=== PATIENT | female | born 1970 | race Caucasian/White ===

== ENCOUNTER 2024-09-17 22:04 | Emergency (ER) | payer SELFPAY ==
[2024-09-17 22:05] VITALS: BP 166/77; PULSE 104; RESP 16; TEMP 36.7; O2SAT 100; BMI 20.3
--- NOTE | 2024-09-17 23:07 | CT_ITS ---
PROCEDURE INFORMATION: Exam: CT Abdomen And Pelvis With Contrast Exam date and time: 09/18/2024 12:45 AM Age: 53 years old Clinical indication: Other: Dysuria; Additional info: Dysuria, tachy, and L CVA tenderness TECHNIQUE: Imaging protocol: Computed tomography of the abdomen and pelvis with contrast. Radiation optimization: All CT scans at this facility use at least one of these dose optimization techniques: automated exposure control; mA and/or kV adjustment per patient size (includes targeted exams where dose is matched to clinical indication); or iterative reconstruction. Contrast material: ISOVUE; Contrast volume: 75 ml; Contrast route: IV; COMPARISON: No relevant prior studies available. FINDINGS: Liver: There is fat deposition adjacent to the falciform ligament. Gallbladder and biliary ducts: No acute process. Pancreas: Normal. Spleen: Normal. Adrenal glands: The adrenal glands appear normal. Kidneys and ureters: Severe left hydroureteronephrosis extending to the urinary bladder where there is a 4 mm calculus at the UVJ (image 106 series 3). Significant left-sided obstructive uropathy. Large right parapelvic renal cyst. Stomach and bowel: The stomach, small bowel, and colon are well-distended and show no evidence of wall thickening, masses, or obstruction. Appendix: No evidence of appendicitis. Intraperitoneal space: Unremarkable. Vasculature: The abdominal aorta and its major branches appear normal without evidence of aneurysm or stenosis. There are pelvic phleboliths. Lymph nodes: There are enlarged upper abdominal mesenteric lymph nodes versus peritoneal nodules measuring up to 1.3 cm in short axis (image 53 series 3). Urinary bladder: There is mild bladder wall thickening, nonspecific. Reproductive: The patient has undergone prior hysterectomy. Bones/joints: The visualized osseous structures of the abdomen and pelvis appear normal for patient age. Soft tissues: There is a small fat containing umbilical hernia. IMPRESSION: 1. Severe left hydroureteronephrosis extending to the urinary bladder where there is a 4 mm calculus at the UVJ (image 106 series 3). 2. Upper abdominal mesenteric lymphadenopathy versus peritoneal nodularity of unclear etiology, correlate with any available prior imaging and consider PET-CT for further evaluation if warranted. COMMENTS: Consistent with the [employer]'s Incidental Findings Committee white paper (J Am Daniak Radiol 2018): Any incidental renal lesion less than 1 cm or classified as too small to characterize, or any incidental cystic renal lesion characterized as simple-appearing, is likely benign. No follow-up imaging is recommended for these lesions per consensus recommendations based on imaging criteria.
[2024-09-17 23:12] LABS: Microscopic, Urine URINE MICROSCOPIC (MICROSCOPIC)
[2024-09-17 23:30] VITALS: BP 136/82; PULSE 109; RESP 18; O2SAT 98
[2024-09-17] MEDS: LACTATED RINGERS 1000ML 1,000 ML 999 ML IV (23:31)
[2024-09-17] MEDS: KETOROLAC 30MG/ML VIAL 15 MG IV (23:31)
[2024-09-17] MEDS: ONDANSETRON 4MG/2ML VIAL 4 MG IV (23:31)
[2024-09-17 23:45] LABS: Basophils # 0.1 K/mm3 (0-0.2); Basophils % 0.5 % (0.1-2.0); Eosinophils # 0.1 K/mm3 (0.0-0.4); Eosinophils % 0.5 % (0.1-12.0); Hematocrit 34.1 % (37.0-47.0); Hemoglobin 11.1 g/dL (12.2-16.2); Lymphocytes # 1.5 K/mm3 (0.7-4.5); Lymphocytes % 11.7 % (10-50); Mean Corpuscular HGB Conc 32.6 g/dL (31.8-35.4); Mean Corpuscular Hemoglobin 29.4 pg (27.0-31.2); Mean Corpuscular Volume 90.5 fl (81-99); Mean Platelet Volume 11.3 fl (7.4-10.4); Monocytes # 0.1 K/mm3 (0.1-1.0); Monocytes % 0.4 % (1.7-9.3); Neutrophils # 11.2 K/mm3 (1.8-7.8); Neutrophils % 86.6 % (37.0-80.0); Platelet Count 459 K/mm3 (142-424); Red Blood Count 3.77 M/mm3 (4.20-5.40); Red Cell Distribution Width 14.3 % (11.5-17.5)
[2024-09-17 23:57] LABS: Albumin Level 4.3 g/dl (3.5-5.0); Chloride 106 mmol/L (98-107); Potassium 4.6 mmoL/L (3.5-5.1); Sodium 140 mmol/L (136-145)
[2024-09-18] VITALS (7 sets, daily range): BP systolic 108–146; BP diastolic 65–89; PULSE 98–113; RESP 18; TEMP 37.2; O2SAT 95–100
[2024-09-18] LABS: Alanine Aminotransferase 18 U/L (12-78); Albumin/Globulin Ratio 1.2 (1.1-1.8); Alkaline Phosphatase 116 U/L (38-126); Anion Gap 15.6 mEq/L (5-15); Aspartate Amino Transferase 38 U/L (14-36); Bilirubin,Total 0.7 mg/dl (0.2-1.3); Blood Urea Nitrogen 17 mg/dl (7-17); Calcium 9.1 mg/dl (8.4-10.2); Carbon Dioxide 23 mmol/L (22.0-30.0); Creatinine Clearance Estimated 67 mL/min (50-200); Estimated Glomerular Filt Rate 65 ml/min (>60); GFR (African American) 79 ML/MIN (>60); Globulin 3.6 g/dL (1.3-3.2); Glucose 92 mg/dl (74-100); Total Protein,Serum 7.9 g/dl (6.3-8.2)
[2024-09-18 00:13] LABS: Blood, Urine Negative (Negative); Glucose,Urine (UA) 1+ (Negative); Ketones,Urine Negative (Negative); Leukocyte Esterase,Urine TRACE (Negative); Nitrate,Urine POSITIVE (Negative); PH,Urine 6.5 (5.0-8.5); Protein,Urine 2+ (Negative); Urobilinogen,Urine >=8.0 EU/dl (0.2)
[2024-09-18 00:14] LABS: Appearance,Urine Cloudy (Clear); Bilirubin,Urine 2+ (Negative); Color,Urine Orange (Yellow)
[2024-09-18 00:16] LABS: Bacteria,Urine Trace /lpf; RBC,Urine Occasional #/hpf (0-3); Squamous Epithelial Cell,Urine Occasional #/hpf (0-5); WBC,Urine Occasional #/hpf (0-3)
[2024-09-18] MEDS: CEFTRIAXONE 1 GM 1 GM in 0.9 % SODIUM CHLORIDE 50 ML IV (00:22)
[2024-09-18] MEDS: SODIUM CHLORIDE 0.9% 10ML SYR (RAD ONLY) 10 ML IV (00:54)
[2024-09-18] MEDS: IOPAMIDOL-370 (76%);100ML BOTTLE 75 ML IV (00:54)
--- NOTE | 2024-09-18 01:33 | ED_ITS ---
Discharge Plan Disposition Patient Disposition: Xfer Short-Term Hosp Prescriptions Prescriptions: No Action phenazopyridine [AZO Standard] 95 mg Tablet 95 mg PO TID Referrals Follow up/Referrals: Guillaume Madrigal [Primary Care Provider] - See instructions Clinical Impressions Clinical Impression: Urinary tract infection, Hydronephrosis, Ureterolithiasis Instructions Patient Instructions: DI for Urinary Tract Infection (UTI), DI for Urinary Tract Infection in Children Print Language Print Language: [place] Discharge ED Provider: Alexis Suero General Adult HPI General Chief complaint: Urogenital-Female Stated complaint: groin area hurts Time Seen by Provider: 09/17/24 22:58 Mode of Arrival: Ambulatory Source of Information: Patient Limitations: No Limitations Description of Symptoms (Recalled from ER Triage Doc. by RN): States she feels like she has to void but can't. She was able to void a small amount in the lobby bathroom. She states she has been having pain in her left groin 9/10 since 1420. States she took AZO standard incase she has a UTI but otherwise does not take any medications. She reports having a fever of 101.9 on either Thursday or but none today. Reports vomiting recently today and body aches. Denies any diarrhea. History of Present Illness HPI narrative: 53-year-old female presents to the ER with complaints of urinary frequency, urgency, dysuria. She states she has been having pain in her left groin 9 out of 10 since this afternoon. She states she took Azo but does not take other medications. She reports having fever of 101.9 earlier this week but none today. Patient reports she had 1 episode of emesis today, nonbloody, nonbilious. She denies diarrhea. She reports history of prior UTI many years ago but not 1 recently. She states she has not been on any recent antibiotics. She denies chest pain or difficulty breathing, headache, dizziness, numbness, tingling, or weakness. Pain radiates to her back. History of complete hysterectomy. Related Data Home Medications ?Medication ?Instructions ?Recorded ?Confirmed phenazopyridine 95 mg tablet 95 mg PO TID 09/17/24 09/17/24 Allergies Allergy/AdvReac Type Severity Reaction Status Date / Time No Known Allergies Allergy Verified 09/17/24 22:47 [facility] Disclaimer: The information contained in this section may have been updated after the patient was seen, as this information can be updated by other users. Social History Smoking Status: Current every day smoker alcohol intake: never current occupational status: other Travel in the last 8 weeks: None ROS Obtained: Yes Systems reviewed as appropriate & no additional complaints except as documented Per HPI Physical Exam General General appearance: alert Comment: Obviously in pain Head Head exam: atraumatic and normocephalic Eye Eye exam: Present PERRL and EOMI ENT ENT exam: Present mucous membranes moist Neck Neck exam: Present normal inspection and full ROM Chest Chest inspection: Present symmetric chest wall rise Respiratory Respiratory exam: Present normal lung sounds bilaterally; Absent respiratory distress, wheezes or stridor Cardiovascular Cardiovascular exam: Present normal rhythm and tachycardia Abdominal Exam Abdominal exam: Present soft, tenderness (Suprapubic) and guarding (Voluntary); Absent distention, rebound or rigidity Extremities Exam Extremities exam: Present full ROM Back Exam Back exam: Present CVA tenderness (L); Absent CVA tenderness (R) Neurological Exam Neurological exam: Present alert and oriented X3; Absent motor sensory deficit Psychiatric Psychiatric exam: Present normal affect and normal mood Skin Skin exam: Present warm and dry Medical Decision Making Medical Records Screening: Per USPSTF and CDC recommendations, given the prevalence of disease in our region, it is our hospital?s policy to screen for HIV and viral Hepatitis for all patients aged 18 and over and those with ongoing risk factors. [facility] Inquiry Pt receiving controlled substance: No Vital Signs: 09/17/24 22:05 09/17/24 23:30 09/18/24 00:27 Temperature 98.1 F Temperature Source Oral Pulse Rate 109 H 113 H Pulse Rate [Right Brachial] 104 H Respiratory Rate 16 18 Blood Pressure 136/82 136/82 Blood Pressure [Right Arm] 166/77 H Blood Pressure Mean [Right Arm] 106 Blood Pressure Source [Right Arm] Automatic Cuff Blood Pressure Position [Right Arm] Sitting 02 Sat by Pulse Oximetry 100 98 96 Oxygen Delivery Method Room Air Room Air 09/18/24 00:30 09/18/24 01:00 09/18/24 01:15 Temperature Temperature Source Pulse Rate 110 H 104 H 102 H Pulse Rate [Right Brachial] Respiratory Rate Blood Pressure 132/82 134/79 130/86 Blood Pressure [Right Arm] Blood Pressure Mean [Right Arm] Blood Pressure Source [Right Arm] Blood Pressure Position [Right Arm] 02 Sat by Pulse Oximetry 99 98 97 Oxygen Delivery Method 09/18/24 01:28 09/18/24 01:30 Temperature Temperature Source Pulse Rate 113 H 108 H Pulse Rate [Right Brachial] Respiratory Rate Blood Pressure 137/89 146/73 H Blood Pressure [Right Arm] Blood Pressure Mean [Right Arm] Blood Pressure Source [Right Arm] Blood Pressure Position [Right Arm] 02 Sat by Pulse Oximetry 100 98 Oxygen Delivery Method Lab Data Lab Results 09/17/24 22:41: Urine Color [place], Urine Appearance Cloudy, Urine pH 6.5, Ur Specific [place] 1.020, Urine Protein 2+ A, Urine Glucose (UA) 1+, Urine Ketones Negative, Urine Blood Negative, Urine Nitrate Positive A, Urine Bilirubin 2+ A, Urine Urobilinogen >=8.0, Ur Leukocyte Esterase Trace, Urine RBC Occasional, Urine WBC Occasional, Ur Squamous Epith Cells Occasional, Urine Bacteria Trace 09/17/24 23:24: WBC 13.0 H, RBC 3.77 L, Hgb 11.1 L, Hct 34.1 L, MCV 90.5, MCH 29.4, MCHC 32.6, RDW 14.3, Plt Count 459 H, MPV 11.3 H, Neut % (Auto) 86.6 H, Lymph % (Auto) 11.7, [place] % (Auto) 0.4 L, Eos % (Auto) 0.5, Baso % (Auto) 0.5, N eut # (Auto) 11.2 H, Lymph # (Auto) 1.5, [place] # (Auto) 0.1, Eos # (Auto) 0.1, Baso # (Auto) 0.1, Sodium 140, Potassium 4.6, Chloride 106, Carbon Dioxide 23, [place] 15.6 H, BUN 17, Creatinine 0.90, Estimated Creat Clear 67, Estimated GFR 65, Est GFR ( Amer) 79, Glucose 92, Calcium 9.1, Total Bilirubin 0.7, AST 38 H, ALT 18, Alkaline Phosphatase 116, Total Protein 7.9, Albumin 4.3, G lobulin 3.6 H, Albumin/Globulin Ratio 1.2 09/17/24 23:24 09/17/24 23:24 Orders (Tests/Meds): ED MEDICATIONS Generic Name Dose Route Start Last Admin Trade Name Freq PRN Reason Stop Dose Admin Lactated Ringer's 1,000 mls @ 999 mls/hr 09/18/24 02:53 09/18/24 03:00 Lactated Ringer's 1000 Ml Bag IV 09/18/24 03:53 999 mls/hr .Q1H1M ONE Administration Sodium Chloride 10 ml 09/18/24 00:53 09/18/24 00:54 Sodium Chloride 0.9% 10ml Syr (Rad Only) IV 10/18/24 00:52 10 ml NEEDED PRN Administration Maintain IV Site Tamsulosin HCl 0.4 mg 09/18/24 21:00 09/18/24 01:35 Tamsulosin 0.4mg Capsule PO 10/18/24 20:59 0.4 mg HS KENDRA Administration Discontinued Medications Generic Name Dose Route Start Last Admin Trade Name Freq PRN Reason Stop Dose Admin Lactated Ringer's 1,000 mls @ 999 mls/hr 09/17/24 23:06 09/17/24 23:31 Lactated Ringer's 1000 Ml Bag IV 09/18/24 00:06 999 mls/hr .Q1H1M ONE Administration Ceftriaxone Sodium 1 gm/ 50 mls @ 100 mls/hr 09/17/24 23:08 09/18/24 00:22 Sodium Chloride IV 09/17/24 23:37 100 mls/hr ONCE ONE Administration Iopamidol 75 ml 09/18/24 00:53 09/18/24 00:54 Iopamidol-370 (76%);100ml Bottle IV 09/18/24 00:54 75 ml ONCE ONE Administration Ketorolac Tromethamine 15 mg 09/17/24 23:07 09/17/24 23:31 Ketorolac 30mg/Ml Vial IV 09/17/24 23:08 15 mg ONCE ONE Administration Morphine Sulfate 4 mg 09/18/24 01:26 09/18/24 01:36 Morphine 4mg/Ml Syringe IV 09/18/24 01:27 4 mg ONCE ONE Administration Ondansetron HCl 4 mg 09/17/24 23:07 09/17/24 23:31 Ondansetron 4mg/2ml Vial IV 09/17/24 23:08 4 mg ONCE ONE Administration ORDERS Category Date Time Status CT abdomen pelvis w con Stat Cat Scan 09/17/24 23:07 Completed CBC w/Auto Diff [Complete Blood Count Auto Diff] Stat Lab 09/17/24 23:24 Completed CMP [Comprehensive Metabolic Panel] Stat Lab 09/17/24 23:24 Completed Urinalysis and Microscopic Stat Lab 09/17/24 22:41 Completed Urine Culture Stat Micro 09/17/24 22:41 Received Medical Decision Narrative: In summary, this 53-year-old female presents to the emergency department today with dysuria, urgency, frequency, left flank pain. On initial evaluation patient is hemodynamically stable though she is mildly tachycardic, normotensive, afebrile, tenderness to palpation in the suprapubic region with voluntary guarding but no rebound or rigidity, no peritonitis, left CVA tenderness present. Differential diagnosis includes but is not limited to urinary tract infection, pyelonephritis, considered kidney stone, ureterolithiasis, hydronephrosis, diverticulitis, among others. Based on these concerns, I ordered serum labs, CT imaging. Patient received IV fluids, Toradol, empiric Rocephin for high suspicion of UTI for treatment. Labs personally reviewed demonstrate leukocytosis, no kidney dysfunction, UA positive for nitrates and bacteria concerning for infection, this could be related to patient having taken Azo but the bacteria with patient's dysuria makes me concerned for UTI. CT abdomen pelvis personally interpreted demonstrates left hydronephrosis and 4 mm left UVJ stone. See radiology read for full interpretation. Tamsulosin administered. Patient also received IV morphine for persistent pain. Radiology read is in agreement, on reassessment patient has had slight improvement of symptoms but is still uncomfortable. With her hydronephrosis, findings of infection associated with stone I believe patient requires urology evaluation and treatment which would require transfer to higher level of care. Patient agreeable. [facility] was contacted and they unfortunately do not have any hospitals with urology available at this time so she will not be able to be transferred to this system. We reached out to [facility], awaiting a callback. [facility], I spoke with nurse practitioner Fady and after reviewing patient's symptoms, labs, imaging, she excepted the patient for direct admission on behalf of Dr. Young. Unfortunately they do not have bed availability at this time so patient is on the wait list. Trying [facility] at this time. [facility] did not have any bed availability, neither did [facility]. I discussed this case with [facility] and [facility]. Patient was accepted for ED to ED transfer to [facility] by Dr Ricardo. Her hemodynamics have improved, heart rate is now in the upper 90s and she is able to tolerate her pain, no additional emesis in the ER. Unfortunately ambulance transportation is not readily available, but patient is hemodynamically stable, afebrile, and I do not believe she is at high risk for acute decompensation. I believe she is appropriate for transfer via private vehicle and she and family would prefer that. Her [id number] at bedside is able to take the patient by car. I gave him explicit instructions to go directly to [facility], to not make stops along the way, and that the patient should remain n.p.o. prior to arrival. Patient and [id number] understand this and agree to this plan. Patient was transferred in stable condition by private vehicle. Critical Care Critical Care Time Critical Care Time: No
[2024-09-18] MEDS: TAMSULOSIN 0.4MG CAPSULE 0.4 MG PO (01:35)
[2024-09-18] MEDS: MORPHINE 4MG/ML SYRINGE 4 MG IV (01:36)
--- NOTE | 2024-09-18 01:43 | PC.NURSE ---
Called [facility]. They will call back
--- NOTE | 2024-09-18 02:07 | PC.NURSE ---
Contacted [facility] in regards for transfer of this pt. They will be calling back with hospitalist.
[2024-09-18] MEDS: LACTATED RINGERS 1000ML 1,000 ML 999 ML IV (03:00)
--- NOTE | 2024-09-18 03:05 | PC.NURSE ---
Contacted [facility] @ 03:05 said they would give us a call back
--- NOTE | 2024-09-20 07:51 | PC.NURSE ---
prelim urine culture sent to where pt was transferred [id number]
--- NOTE | 2024-09-21 07:23 | PC.NURSE ---
faxed final urine culture to [facility]
== END 2024-09-18 03:50 | disposition short-term general hospital (02) ==
PROVIDERS: Emergency Medicine; Emergency Provider Emergency Medicine; PCP Pediatrics
DX: N20.1 Calculus of ureter (principal); N13.30 Unspecified hydronephrosis; N39.0 Urinary tract infection, site not specified; R10.2 Pelvic and perineal pain; R50.9 Fever, unspecified; R11.10 Vomiting, unspecified; R30.0 Dysuria; R35.0 Frequency of micturition; R39.15 Urgency of urination; M79.10 Myalgia, unspecified site
CPT/HCPCS: 74177; 80053; 81001; 85025; 87086; 87088; 87186; 96361; 96365; 96374; 96375; 99285; J0696; J1885; J2270; J2405; J7120; Q9967